=== PATIENT | male | born 1955 | race Caucasian/White ===

== ENCOUNTER 2021-06-14 07:09 | Emergency (ER) | payer OTHER, SELFPAY ==
--- NOTE | ~2021-06-14 | CT_ITS ---
EXAMINATION: CT ABDOMEN AND PELVIS WITHOUT CONTRAST CLINICAL INFORMATION: Flank pain. History of kidney stones. COMPARISON: Renal ultrasound from 05/14/2019 TECHNIQUE: Multidetector volumetric imaging was performed from the superior aspect of the liver through the pubic symphysis. Sagittal and coronal reformatted images were obtained on the technologist's workstation. This CT examination was performed using dose optimization techniques as appropriate, variously including the following: *Automated exposure control *Adjustment of mA and/or kV according to patient size (this includes techniques or standardized protocols for targeted exams where dose is matched to indication/reason for exam; i.e. extremities or head) *Use of iterative reconstruction technique DLP: 495 mGy-cm FINDINGS: LUNG BASES: There is centrilobular emphysema within the visualized lung bases. No pulmonary consolidation or pleural effusion at either lung base. LIVER: The liver has normal size, shape, and attenuation. No evidence of liver mass. Several small calcified granulomas are present within the liver. GALLBLADDER AND BILIARY TREE: Gallbladder is underdistended. No calcified gallstones. No evidence of gallbladder wall edema or pericholecystic fluid. PANCREAS: Normal. No edema, pancreatic ductal dilatation or mass. SPLEEN: Normal. ADRENAL GLANDS: Normal. KIDNEYS AND URETERS: There is atrophy/scarring of posterior cortex of the mid to upper pole of the left kidney. Otherwise, cortical thickness is well-preserved at each kidney. 0.4 cm calyceal stone in the upper pole of the right kidney is located 6.9 cm deep from the skin surface at the posterior axillary line. The stone is too small for acquisition of a reliable density measurement. No left-sided renal calculi. Left renal vascular calcifications are noted. No evidence of hydroureter. Within the left retroperitoneum, L4 level, a 0.2 x 0.2 x 0.4 cm calcification is difficult to localize (image 39 of 85, series 3). It might be within the nondilated ureter rather than within a vein (i.e., it might represent a nonobstructing ureteral stone rather than a phlebolith). Query if there is any left-sided flank pain. BLADDER: The urinary bladder is underdistended. No bladder calculi. BOWEL AND PERITONEUM: No dilated bowel loops. Stomach and small bowel are grossly unremarkable. The appendix is normal. Multiple diverticula of the colon, including sigmoid colon, has a mildly thickened wall. This is suggestive of chronic diverticular disease. No pericolonic fat stranding. No overt findings of acute diverticulitis. No ascites or pneumoperitoneum. ABDOMINAL WALL: Unremarkable. VASCULATURE: Atherosclerosis of the abdominal aorta without aneurysm. LYMPH NODES: No pathologic sized lymph nodes in the abdomen or pelvis. No inguinal lymphadenopathy. PELVIC VISCERA: Prostate gland is grossly unremarkable. No pelvic free fluid. Several phleboliths are seen within the lower pelvis. SKELETAL: Streak artifact is produced by components of the left hip arthroplasty. Mild spondylosis of the lumbar spine. No suspicious osseous lesions. CT/CT abdomen pelvis wo con IMPRESSION: * There is a nonobstructing 0.4 cm stone of the upper pole of the right kidney. * A 0.2 x 0.2 x 0.4 cm calcification in the left retroperitoneum is difficult to localize. It might be located within the nondilated ureter. The suspicion for a nonobstructing left ureteral stone would be elevated if there is any recent onset of left flank pain. * Colonic diverticulosis without evidence of diverticulitis. * Mild to moderate centrilobular emphysema is observed within the visualized lung bases.
[2021-06-14 07:18] VITALS: BP 135/77; PULSE 82; RESP 15; TEMP 36.6; O2SAT 99; BMI 22.4
--- NOTE | 2021-06-14 07:52 | ED.ABDPAIN ---
HPI - Abdominal Pain General Chief Complaint: Abdominal Pain Stated Complaint: flank pain Time Seen by Provider: 06/14/21 07:45 Source: patient Mode of arrival: ambulatory Limitations: no limitations History of Present Illness HPI narrative: 65-year-old male presents emergency department with 10 days of back pain. He has his left lower back states he has history kidney stones he denies dysuria or frequency he denies fevers falls chest pain cough or shortness of breath. Patient denies any nausea vomiting or diarrhea. He states his sister is the best cranial sacral specialist in the area and she saw him and told him that it was kidney issues leading to back pain. He states he has had 5 kidney stones in past he has not taken anything for pain for 10 days he states pain was very severe up until 3 days ago and his pain has just been manageable only hurts when he is moving. MD elicited complaint: flank pain Related Data Previous Rx's Medication Instructions Recorded cyclobenzaprine 5 mg tablet 5 mg PO BEDTIME PRN #20 tab 06/14/21 lidocaine 5 % topical patch 1 patch TOPICAL DAILY #30 ea 06/14/21 prednisone 20 mg tablet 60 mg PO DAILY 5 Days #15 tab 06/14/21 Allergies Allergy/AdvReac Type Severity Reaction Status Date / Time codeine [CODEINE] Allergy Intermediate HIVES Verified 06/14/21 07:33 Review of Systems Review of Systems Review of systems: General: Patient denies any fever chills recent illness or falls Musculoskeletal: Left lower back pain denies any other or body aches or other injuries HEENT: denies headache, runny nose, ear pain Respiratory: denies shortness of breath, cough Cardiovascular: no chest pain or palpitations : denies dysuria, frequency Abdomen: no nausea vomiting denies abdominal pain Extremities: no swelling, no pain Skin: no diaphoresis Yes all other systems are reviewed and are negative Physical Exam Vital Signs: Vital Signs: Last Vital Signs Temp 98.2 F 06/14/21 09:09 Pulse 62 06/14/21 09:09 Resp 16 06/14/21 09:09 BP 152/88 H 06/14/21 09:09 Pulse Ox 97 06/14/21 09:09 Body Mass Index 22.4 General: Well-appearing well-nourished in no signs of distress HEENT: Normocephalic atraumatic Neck: No signs of JVD, no masses no tenderness or lymphadenopathy Cardiovascular: Regular rate and rhythm Respiratory: Clear to auscultation bilaterally Abdomen: Soft nontender no masses Extremities: Normal pedal pulses no signs of edema Skin: Dry warm no rashes Back: No tenderness full ROM no CVA tenderness MDM - Abdominal Pain MDM Narrative Medical decision making narrative: I will get a CT scan check urine CBC BMP give patient fluids and Toradol. Labs okay this sounds more muscular still stills he only has pain with movement he is still pending his urinalysis. He might have passed a stone over the week but his pain that he is complaining of now is likely due to musculoskeletal issues. He has been taking Percocet at home which had left over. I educated patient trying some Flexeril starting on prednisone for few days. UA is negative I will send home. Differential Diagnosis Differential diagnosis: Likely calculus of kidney Differential diagnosis narrative:: Likely musculoskeletal back pain but I will get a CT scan to rule calculus of kidney will get CBC BMP LFTs lipase and urinalysis as well. Lab Data Result diagrams: 06/14/21 08:44 06/14/21 08:44 Labs: Lab Results 06/14/21 06/14/21 06/14/21 Range/Units 08:44 08:44 09:21 WBC 5.9 (4.8-10.8) X10*3/uL RBC 5.06 (4.60-5.80) X10*6/uL Hgb 15.8 (14.0-18.0) g/dl Hct 47.2 (42-52) % MCV 93.3 (80-98) fL MCH 31.2 (27.0-33.0) pg MCHC 33.5 (31.0-36.0) g/dl RDW 12.9 (11.0-16.0) % Plt Count 200 (160-400) X10*3/uL MPV 9.4 (9.4-12.4) fL Immature Gran % (Auto) 0.2 (0.0-0.4) % Neut % (Auto) 62.1 (45-73) % Lymph % (Auto) 23.7 (20-40) % [place] % (Auto) 11.1 H (2-11) % Eos % (Auto) 2.4 (0-4) % Baso % (Auto) 0.5 (0-2) % Lymph # (Auto) 1.4 (1.2-4.9) X10*3/uL [place] # (Auto) 0.7 (0.1-1.2) X10*3/uL Eos # (Auto) 0.1 (0.0-0.4) X10*3/uL Baso # (Auto) 0.0 (0.0-0.2) X10*3/uL Abs Immat Gran (auto) 0.01 (0.00-0.03) X10*3/uL Absolute Neuts (auto) 3.6 (2.0-8.3) X10*3/uL Absolute Nucleated RBC 0.000 (0.0-0.012) X10*3/uL Nucleated RBC % (auto) 0.0 (0.0-0.2) /100WBC Sodium 142 (135-145) mmol/L Potassium 3.9 (3.3-5.1) mmol/L Chloride 106 (96-108) mmol/L Carbon Dioxide 31 H (22-29) mmol/L Anion Gap 9 L (12-20) BUN 18 H (9-16) mg/dL Creatinine 0.92 (0.5-1.4) mg/dL Estim Creat Clear Calc 84.9 Estimated GFR > 60 Random Glucose 111 (60-115) mg/dL Calcium 9.2 (8.4-10.2) mg/dL Total Bilirubin 0.6 (0.0-1.0) mg/dL Direct Bilirubin 0.3 (0.0-0.5) mg/dL AST 14 (5-37) U/L ALT 16 (0-40) U/L Alkaline Phosphatase 79 (39-117) U/L Total Protein 6.2 L (6.5-8.0) g/dL Albumin 4.0 (3.5-5.0) g/dL Lipase 6 L (8-78) U/L Urine Color YELLOW Urine Appearance CLEAR Urine pH 6.0 (5.0-8.0) Ur Specific Rentz 1.020 (1.005-1.025) Urine Protein NEG (NEG-TRACE) MG/DL Urine Glucose (UA) NEG (NEG) MG/DL Urine Ketones NEG (NEG) MG/DL Urine Blood NEG (NEG) Urine Nitrite NEG (NEG) Ur Leukocyte Esterase TRACE H (NEG) Urine RBC 0 (0) /HPF Urine WBC 1-4 (0-4) /HPF Ur Squamous Epith Cells TRACE /LPF Ur Renal Epithelial Cell TRACE /LPF Urine Bacteria NONE /LPF Discharge Plan Discharge Clinical Impression: Acute flank pain, Back pain Patient Disposition: Home, Self-Care Instructions: Back Pain (ED) Additional Instructions: Your labs and CT are all okay. Please call to follow up with your doctor. Prescriptions: New prednisone 20 mg tablet 60 mg PO DAILY 5 Days Qty: 15 RF: 0 lidocaine 5 % adhesive patch,medicated 1 patch topical DAILY Qty: 30 RF: 0 cyclobenzaprine 5 mg tablet 5 mg PO BEDTIME PRN (Reason: muscle spasm) Qty: 20 RF: 0 PMFSH Past Medical History Medical History (Updated 06/14/21 @ 09:26 by Darrell Pastrana DO) Kidney stone Social History Social History Patient Tobacco Use Status: Former Tobacco user Use of substances other than those prescribed or required for medical reasons: Yes Substance Use Type: Marijuana Substance Use Frequency: Occasionally Last Used Substance: Unknown Any prior treatment program specific to substance use: No Advance Directives: No
[2021-06-14 08:48] LABS: MANUAL DIFF FLAG NO
[2021-06-14] MEDS: Ketorolac Tromethamine 15 MG/ML VIAL IVPUSH (08:53)
[2021-06-14 08:54] LABS: Basophils Percent Auto 0.5 % (0-2); Eosinophils Absolute Auto 0.1 X10*3/uL (0.0-0.4); Eosinophils Percent Auto 2.4 % (0-4); Hematocrit 47.2 % (42-52); Hemoglobin 15.8 g/dl (14.0-18.0); Imm Gran Abs Auto 0.01 X10*3/uL (0.00-0.03); Imm Gran Pct Auto 0.2 % (0.0-0.4); Lymphocytes Absolute Auto 1.4 X10*3/uL (1.2-4.9); Lymphocytes Percent Auto 23.7 % (20-40); Mean Corpuscular HGB Conc 33.5 g/dl (31.0-36.0); Mean Corpuscular Hemoglobin 31.2 pg (27.0-33.0); Mean Corpuscular Volume 93.3 fL (80-98); Mean Platelet Volume 9.4 fL (9.4-12.4); Monocytes Absolute Auto 0.7 X10*3/uL (0.1-1.2); Monocytes Percent Auto 11.1 % (2-11); Neutrophils Absolute Auto 3.6 X10*3/uL (2.0-8.3); Neutrophils Percent Auto 62.1 % (45-73); Platelet Count 200 X10*3/uL (160-400); Red Blood Count 5.06 X10*6/uL (4.60-5.80); Red Cell Distribution Width 12.9 % (11.0-16.0); White Blood Count 5.9 X10*3/uL (4.8-10.8)
[2021-06-14] MEDS: 0.9 % Sodium Chloride 500 ML 999 ML IV (08:54)
[2021-06-14 09:09] VITALS: BP 152/88; PULSE 62; RESP 16; TEMP 36.8; O2SAT 97
[2021-06-14 09:13] LABS: Alanine Aminotransferase 16 U/L (0-40); Alkaline Phosphatase 79 U/L (39-117); Anion Gap 9 (12-20); Aspartate Amino Transferase 14 U/L (5-37); Bilirubin Direct 0.3 mg/dL (0.0-0.5); Bilirubin Total 0.6 mg/dL (0.0-1.0); Blood Urea Nitrogen 18 mg/dL (9-16); Calcium 9.2 mg/dL (8.4-10.2); Carbon Dioxide 31 mmol/L (22-29); Chloride 106 mmol/L (96-108); Creatinine Clr Calc Pharmacy 84.9; Estimated Glomerular Filt Rate > 60; Glucose Random 111 mg/dL (60-115); Lipase 6 U/L (8-78); Potassium 3.9 mmol/L (3.3-5.1); Sodium 142 mmol/L (135-145); Total Protein 6.2 g/dL (6.5-8.0)
--- NOTE | 2021-06-14 09:19 | PC.NURSE ---
pt alert and oreinted x4, vss. pt reports LL back pain for 10 days now. he states he has history of kidney stone. denies fever/chills. no falls. no chest pain, no cough, no sob. denies n/v/d. pt states these symptoms are the same as previous. iv has been established, meds given, fluids hung as documented. no apparent distress noted. l
[2021-06-14 09:27] LABS: Appearance Urine CLEAR; Color Urine YELLOW; Glucose Urine UA NEG (NEG); Leukocyte Esterase Urine TRACE (NEG); Nitrite Urine NEG (NEG); UACC Culture Trigger YES; Urine Blood NEG (NEG); Urine Ketones NEG (NEG); Urine Protein NEG (NEG-TRACE)
[2021-06-14 09:45] LABS: RBC Urine 0 /HPF (0)
[2021-06-14 09:46] LABS: Renal Epithelial Cells Urine TRACE /LPF; Squamous Epithelial Cell Urine TRACE /LPF
[2021-06-14] MEDS: predniSONE 20 MG TABLET 60 MG PO (11:06)
[2021-06-14 11:10] VITALS: BP 159/76; PULSE 61; RESP 14; O2SAT 98
--- NOTE | 2021-06-14 11:14 | PC.NURSE ---
pt medically cleared for discharge, prn pain med effect. discharge summary given and explained.
== END 2021-06-14 11:19 | disposition home or self-care (01) ==
PROVIDERS: Emergency Provider Student in an Organized Health Care Education/Training Program; PCP Family Medicine
DX: R10.9 Unspecified abdominal pain (principal); M54.50 Low back pain, unspecified; Z79.899 Other long term (current) drug therapy
CPT/HCPCS: 36415; 74176; 80048; 80076; 81001; 83690; 85025; 87086; 96361; 96374; 99284; J1885

== ENCOUNTER 2023-01-30 09:26 | Emergency (ER) | payer OTHER, SELFPAY ==
--- NOTE | ~2023-01-30 | XR_ITS ---
EXAMINATION: XR HAND, RIGHT CLINICAL INFORMATION: Swelling and redness. Evaluate for osteomyelitis. COMPARISON: 3 views of the right hand TECHNIQUE: Bone alignment is normal. No fracture or dislocation. Normal joints spaces soft tissue swelling adjacent to the radial and volar distal phalanx of the second finger and Irregularly-shaped 2 mm in length density in the soft tissues questionable soft tissue foreign body. Small periarticular soft tissue calcification or ossification adjacent to the middle phalanx of the third finger along the DIP joint questionable for changes from old trauma. FINDINGS: Bone alignment is normal. No fracture or dislocation. Normal joints spaces soft tissue swelling adjacent to the radial and volar distal phalanx of the second finger and Irregularly-shaped 2 mm in length density in the soft tissues questionable soft tissue foreign body. Small periarticular soft tissue calcification or ossification adjacent to the middle phalanx of the third finger along the DIP joint questionable for changes from old trauma. XR/XR hand RT 2V IMPRESSION: No x-ray evidence of osteomyelitis. Soft tissue swelling of the distal second finger and question small soft tissue foreign body. Clinical correlation recommended.
[2023-01-30 10:09] VITALS: BP 164/82; PULSE 58; RESP 20; TEMP 36.3; O2SAT 96; BMI 20.9
--- NOTE | 2023-01-30 11:44 | ED_ITS ---
HPI - Wound/Laceration General Chief Complaint: Wound/Laceration Stated Complaint: r index finger infection Time Seen by Provider: 01/30/23 11:10 Source: patient Mode of arrival: ambulatory Limitations: no limitations History of Present Illness HPI narrative: 67-year-old male who is right-hand dominant who presents to the ER with complaints of redness and swelling to the right 2nd digit for the last 2 weeks. Patient reports he was fishing and the spike of a sullivan punctured his right index finger. He reported initially he had a puncture wound and some slight discomfort but over the weekend he developed increasing redness and swelling. Patient is unsure of his tetanus status. Patient denies any fevers or chills. Patient reports that this was from a fresh water fish. Related Data Previous Rx's Medication Instructions Recorded cyclobenzaprine 5 mg tablet 5 mg PO BEDTIME PRN muscle spasm 06/14/21 #20 tabs cyclobenzaprine 5 mg tablet 5 mg PO BEDTIME PRN muscle spasm 06/14/21 #20 tabs lidocaine 5 % topical patch 1 patch topical DAILY back pain 06/14/21 #30 ea lidocaine 5 % topical patch 1 patch topical DAILY back pain 06/14/21 #30 ea prednisone 20 mg tablet 60 mg PO DAILY Asthma 5 days #15 06/14/21 tabs prednisone 20 mg tablet 60 mg PO DAILY Asthma 5 days #15 06/14/21 tabs amoxicillin 875 mg-potassium 1 tab PO Q12H #14 tabs 01/30/23 clavulanate 125 mg tablet Allergies Allergy/AdvReac Type Severity Reaction Status Date / Time codeine [CODEINE] Allergy Intermediate HIVES Verified 06/14/21 07:33 Review of Systems Review of Systems: Yes all other systems are reviewed and are negative Constitutional: Constitutional: Reports no additional constitutional complaints, Denies body ache(s), Denies chills, Denies fever(s), Denies headac he(s) and Denies weakness Eyes: Eyes: Reports no additional eye complaints and Denies change in vision ENT: Reports system reviewed and no additional complaints, except as documented, Denies dizziness, Denies headache(s), Denies nasal congestion, Denies nasal discharge and Denies neck pain Cardiovascular: Cardiovascular: Reports no additional cardiovascular complaints, Denies chest pain, Denies leg edema and Denies dyspnea Respiratory: Respiratory: Reports no additional respiratory complaints, Denies cough and Denies dyspnea Gastrointestinal: Gastrointestinal: Reports no additional gastrointestinal complaints, Denies abdominal pain, Denies diarrhea, Denies nausea and Denies vomiting Genitourinary: Genitourinary: Denies urinary incontinence Musculoskeletal: Musculoskeletal: Reports no additional musculoskeletal complaints, Denies back pain, Denies arthralgias, Denies joint swelling, Denies neck pain, Denies numbness and Denies tingling Integumentary/Breasts: Skin/Breast: Reports system reviewed and no additional complaints, except as docu, Reports swelling, Reports erythema and Denies rash Neurologic: Reports system reviewed and no additional complaints, except as documented, Denies Abnormal speech present, Denies dizziness, Denies headache(s), Denies numbness, Denies tingling and Denies weakness PMFSH Past Medical History Attestation statement: The following information was validated with the patient. Source: old records reviewed and nursing notes reviewed Medical History Kidney stone Social History Social History Patient Tobacco Use Status: Former Tobacco user Substance Use Type: Marijuana Advance Directives: No Advance Directives Information Provided: Yes Physical Exam Vital Signs: Vital Signs: Last Vital Signs Temp 97.0 F 01/30/23 12:54 Pulse 57 01/30/23 12:54 Resp 14 01/30/23 12:54 BP 163/77 H 01/30/23 12:54 Pulse Ox 97 01/30/23 12:54 O2 Del Method Room Air 01/30/23 12:54 BMI result Body Mass Index 20.9 Const: General: cooperative, healthy appearing, comfortable and no acute distress Orientation/consciousness: patient oriented x3 Limitations: no limitations HEENT: Head: Yes normal to inspection Ears: hearing grossly normal bilaterally General nose exam: Normal external nose present Face and sinus: Yes normal facial exam Mouth: Normal oral and palatal mucosa present Throat: Yes posterior oropharynx normal Eyes: General: appearance normal, both eyes and all related structures Pupils: Equal, round and reactive pupils present Neck: Neck: Yes normal visual inspection Chest: Chest palpation & inspection: normal inspection of the chest Resp: Effort & Inspection: normal respiratory effort Auscultation: clear to auscultation bilaterally Cardio: Rate: regular rate Rhythm: regular rhythm Peripheral pulses: Peripheral pulses 2+ throughout GI: Inspection: Yes normal to inspection Palpation (GI): Soft to palpation and nontender Auscultation: normal bowel sounds Back/Spine/Pelvis: Thoracic/Lumbar Spine: thoracic and lumbar spine normal to inspection Skin: General skin exam: no rashes or lesions noted Neuro: General: patient oriented x3, no focal motor deficits and normal sensation to monofilament Cranial nerves: Yes Equal, round and reactive pupils present Cognition (Neuro): normal cognition Speech: No Abnormal speech present Gait exam (Neuro): Normal gait present Motor exam (neuro): 5/5 motor strength present throughout Extrem: Other: To the distal aspect of the volar right 2nd digit there is a puncture site noted. There is local erythema and swelling. FroM General: Yes normal to inspection Course Course Course Narrative: x-ray shows no evidence of osteomyelitis. There does appear to be a small soft tissue foreign body. This cannot be removed manually at the bedside as it appears quite deep. I did discuss this with the patient and recommend he follow-up with hand surgery outpatient. I will place him on oral antibiotics and recommend warm salt compresses. reviewed worrisome signs and symptoms of when to return to the emergency room. Comfortable plan for discharge home Medications Administered Discontinued Medications Generic Name Dose Route Start Last Admin Trade Name Hadleyq PRN Reason Stop Dose Admin Diphtheria/Tetanus/Acell Pertussis 0.5 ml 01/30/23 11:38 01/30/23 11:58 Diphth,Pertus(Acell),Tet Adult 0.5 Ml Syringe IM 01/30/23 11:39 0.5 ml .ONCE ONE Administration Medical Decision Making Medical Decision Making [facility] Narrative: This is a 67-year-old male [id number] here with swelling and redness to the right 2nd digit with a puncture wound which occurred 2 weeks ago from the fin of the fish that he caught from fresh water. Patient appears to have mild cellulitis on exam no evidence of tenosynovitis, cellulitis is mild in appearance I will check an x-ray to eval for osteo or foreign body, patient will receive a tetanus Differential Diagnosis Differential Diagnoses: The differential diagnosis associated with the presentation includes low concern for tenosynovitis consider cellulitis will concern for foreign body or fracture Independent Interpretation I performed an independent interpretation of an: Plain X-Ray Interpretation: I independently reviewed the x-ray and agree with the radiology report Radiology Impression Discussion of test interpretation with radiology: I have reviewed the radiologist's reading. Radiologist Impression: [address] [address] XRay Report Signed Patient: Kobi Davis MR#: [id number] : 1955 Acct:[id number] Age/Sex: 67 / M ADM Date: 01/30/23 Loc: HO.ED Attending Dr: Ordering Physician: Marie Wright NP Date of Service: 01/30/23 Procedure(s): XR hand RT 2V Accession Number(s): [id number] cc: Marie Wright NP~ EXAMINATION: XR HAND, RIGHT CLINICAL INFORMATION: Swelling and redness. Evaluate for osteomyelitis.? COMPARISON: 3 views of the right hand TECHNIQUE: Bone alignment is normal. No fracture or dislocation. Normal joints spaces soft tissue swelling adjacent to the radial and volar distal phalanx of the second finger and Irregularly-shaped 2 mm in length density in the soft tissues questionable soft tissue foreign body. Small periarticular soft tissue calcification or ossification adjacent to the middle phalanx of the third finger along the DIP joint questionable for changes from old trauma. FINDINGS: Bone alignment is normal. No fracture or dislocation. Normal joints spaces soft tissue swelling adjacent to the radial and volar distal phalanx of the second finger and Irregularly-shaped 2 mm in length density in the soft tissues questionable soft tissue foreign body. Small periarticular soft tissue calcification or ossification adjacent to the middle phalanx of the third finger along the DIP joint questionable for changes from old trauma. XR/XR hand RT 2V IMPRESSION: No x-ray evidence of osteomyelitis. Soft tissue swelling of the distal second finger and question small soft tissue foreign body. Clinical correlation recommended. Discharge Plan Discharge Clinical Impression: Cellulitis Patient Disposition: Home, Self-Care Instructions: Cellulitis (DC), Warm Compress or Soak (ED) Additional Instructions: warm soaks 3-4 times daily Take Motrin or Tylenol for pain as needed if able Taking antibiotics as prescribed. Return for any fever, increasing redness or swelling. Your x-ray shows a foreign body in the soft tissue. This may be from the fish. Therefore we are referring you to a hand surgeon to follow up Prescriptions: New amoxicillin-pot clavulanate 875-125 mg tablet 1 tab PO Q12H Qty: 14 0RF No Action prednisone 20 mg tablet 60 mg PO DAILY 5 Days Qty: 15 0RF lidocaine 5 % adhesive patch,medicated 1 patch topical DAILY Qty: 30 0RF Rx Instructions: leave on most painful area for up to 12 hrs cyclobenzaprine 5 mg tablet 5 mg PO BEDTIME PRN (Reason: muscle spasm) Qty: 20 0RF prednisone 20 mg tablet 60 mg PO DAILY 5 Days Qty: 15 0RF lidocaine 5 % adhesive patch,medicated 1 patch topical DAILY Qty: 30 0RF Rx Instructions: leave on most painful area for up to 12 hrs cyclobenzaprine 5 mg tablet 5 mg PO BEDTIME PRN (Reason: muscle spasm) Qty: 20 0RF Referrals: Liz Hong MD [Primary Care Provider] - 1 week Viry Cummings MD [Physician] - 1 week Interventions: ED Discharge Assessment Last Done: 01/30/23 13:30 Discharge Date/Time: 01/30/23 13:30
[2023-01-30] MEDS: Diphth,Pertus(ACell),Tet Adult 0.5 ML SYRINGE IM (11:58)
--- NOTE | 2023-01-30 12:36 | PC.NURSE ---
pt aox4, vaccine given per oct. awaiting x ray results
[2023-01-30 12:54] VITALS: BP 163/77; PULSE 57; RESP 14; TEMP 36.1; O2SAT 97
== END 2023-01-30 13:30 | disposition home or self-care (01) ==
PROVIDERS: Emergency Provider Emergency Medicine; PCP Family Medicine
DX: L03.011 Cellulitis of right finger (principal); S61.240A Puncture wound with foreign body of right index finger without damage to nail, initial encounter; W45.8XXA Other foreign body or object entering through skin, initial encounter; Y93.19 Activity, other involving water and watercraft; Y92.89 Other specified places as the place of occurrence of the external cause; Y99.9 Unspecified external cause status
CPT/HCPCS: 73120; 90471; 90715; 99284

== ENCOUNTER → 2023-02-15 08:26 | Outpatient (BNVA) | payer OTHER, SELFPAY | PROVIDERS: PCP Family Medicine; Visit Provider Physician Assistant | DX: L03.113 Cellulitis of right upper limb (principal) | CPT/HCPCS: 99202 ==

== ENCOUNTER 2023-04-24 05:58 | Emergency (ER) | payer OTHER, SELFPAY ==
[2023-04-24 06:17] VITALS: BP 150/73; PULSE 51; RESP 19; TEMP 36.1; O2SAT 97; BMI 20.7
--- NOTE | 2023-04-24 08:01 | ED_ITS ---
HPI - General Adult General Chief complaint: General Medical Stated complaint: right foot infection Time Seen by Provider: 04/24/23 07:59 Source: patient Mode of arrival: ambulatory Limitations: no limitations History of Present Illness HPI narrative: Patient presented complaining of right leg infection ongoing for 2 months denies any fever chills any systemic symptoms, he does not have diabetes he is not a smoker Onset (ago): month(s) (2) Location: lower extremity (Right leg) Radiation: non-radiation Severity: mild Quality: burning Pain Consistency: constant Exacerbating factors: none Associated symptoms: denies other symptoms Related Data Home Medications Medication Instructions Recorded Confirmed aspirin 81 mg tablet,delayed 81 mg PO DAILY 02/15/23 release (Adult Low Dose Aspirin) lisinopril 5 mg tablet 5 mg PO DAILY 02/15/23 Previous Rx's Medication Instructions Recorded cyclobenzaprine 5 mg tablet 5 mg PO BEDTIME PRN muscle spasm 06/14/21 #20 tabs cyclobenzaprine 5 mg tablet 5 mg PO BEDTIME PRN muscle spasm 06/14/21 #20 tabs lidocaine 5 % topical patch 1 patch topical DAILY back pain 06/14/21 #30 ea lidocaine 5 % topical patch 1 patch topical DAILY back pain 06/14/21 #30 ea prednisone 20 mg tablet 60 mg PO DAILY Asthma 5 days #15 06/14/21 tabs prednisone 20 mg tablet 60 mg PO DAILY Asthma 5 days #15 06/14/21 tabs amoxicillin 875 mg-potassium 1 tab PO Q12H #14 tabs 01/30/23 clavulanate 125 mg tablet cephalexin 500 mg capsule 500 mg PO QID 10 days #40 caps 04/24/23 Allergies Allergy/AdvReac Type Severity Reaction Status Date / Time codeine [CODEINE] Allergy Intermediate HIVES Verified 02/15/23 08:47 Review of Systems Constitutional: Constitutional: Reports no additional constitutional complaints ENT: Reports system reviewed and no additional complaints, except as documented Cardiovascular: Cardiovascular: Reports no additional cardiovascular complaints Respiratory: Respiratory: Reports no additional respiratory complaints PMFSH Past Medical History Medical History High cholesterol Hypertension Kidney stone Surgical History History of hip replacement Social History Social History Patient Tobacco Use Status: Former Tobacco user Substance Use Type: Marijuana Advance Directives: No Advance Directives Information Provided: No Current occupational status: disabled Current occupation: right hand dominant Physical Exam ED Vital Signs: Vital Signs - 24 hr 04/24/23 06:17 Temperature 97.0 F Pulse Rate 51 Respiratory Rate 19 Blood Pressure 150/73 H Pulse Oximetry 97 Oxygen Delivery Method Room Air BMI result Body Mass Index 20.7 He looks well is not toxic-appearing Const General: cooperative Nutritional Appearance: average body habitus Orientation/consciousness: patient oriented x3 Limitations: no limitations HENMT Head: Yes normal to inspection General nose exam: Normal external nose present Face and sinus: Yes normal facial exam Mouth: Normal oral and palatal mucosa present Teeth and gingiva: dentition normal Neck Neck: Yes normal visual inspection Chest Chest palpation & inspection: normal inspection of the chest Resp Effort & Inspection: normal respiratory effort Auscultation: clear to auscultation bilaterally Cardio Jugular venous distension: no JVD Rate: regular rate Rhythm: regular rhythm GI Inspection: Yes normal to inspection Palpation (GI): Soft to palpation, not firm and nontender Percussion: Yes normal to percussion Skin General skin exam: elasticity normal Neuro General: patient oriented x3 Extrem Other: Examination the right lower extremity shows in the medial aspect of the leg area of redness. I was able to palpate the foot pulses with doppler Course Reevaluation(s) Reevaluation #1: Patient he is refusing blood work and ultrasound to rule out DVT he understand risk of this he states that his is ill at home with hospice and he need to be with her SAM possible, because she may soon. This point will give him a prescription for antibiotic he will follow-up with PCP Time: 08:22 Medical Decision Making Medical Decision Making MDM Narrative: Patient presented with the cellulitis of the right lower extremity, he refuses blood work he refused ultrasound, he states that his is in hospice and needs to be with her a soon as possible. The clinical picture is consistent with cellulitis I will provide the patient with p.o. antibiotic he will follow- up with his PCP Differential Diagnosis Differential Diagnoses: The differential diagnosis associated with the presentation includes Cellulitis/ulcer Admission/Observation Consideration of admission/observation: Escalation of care including admission/observation considered Prescription Management I considered prescription management with: Antibiotic Discharge Plan Discharge Clinical Impression: Cellulitis of right leg Patient Disposition: Home, Self-Care Instructions: Cellulitis (DC) Additional Instructions: You are refusing blood work and an ultrasound of the legs, you should follow-up with your doctor as soon as possible return if you have a fever increased swelling any concern Prescriptions: New cephalexin 500 mg capsule 500 mg PO QID 10 Days Qty: 40 0RF No Action prednisone 20 mg tablet 60 mg PO DAILY 5 Days Qty: 15 0RF lidocaine 5 % adhesive patch,medicated 1 patch topical DAILY Qty: 30 0RF Rx Instructions: leave on most painful area for up to 12 hrs cyclobenzaprine 5 mg tablet 5 mg PO BEDTIME PRN (Reason: muscle spasm) Qty: 20 0RF prednisone 20 mg tablet 60 mg PO DAILY 5 Days Qty: 15 0RF lidocaine 5 % adhesive patch,medicated 1 patch topical DAILY Qty: 30 0RF Rx Instructions: leave on most painful area for up to 12 hrs cyclobenzaprine 5 mg tablet 5 mg PO BEDTIME PRN (Reason: muscle spasm) Qty: 20 0RF amoxicillin-pot clavulanate 875-125 mg tablet 1 tab PO Q12H Qty: 14 0RF lisinopril 5 mg tablet 5 mg PO DAILY aspirin [Adult Low Dose Aspirin] 81 mg tablet,delayed release (DR/EC) 81 mg PO DAILY Referrals: Physician,Unknown J [Primary Care Provider] - 2 days
--- NOTE | 2023-04-24 08:11 | PC.NURSE ---
pt refusing work up or assessment. md to send prescription and referrals. pt being dc.
== END 2023-04-24 08:13 | disposition home or self-care (01) ==
PROVIDERS: Emergency Provider Emergency Medicine
DX: L03.115 Cellulitis of right lower limb (principal); Z79.899 Other long term (current) drug therapy
CPT/HCPCS: 99283

== ENCOUNTER 2023-06-22 12:16 | Emergency (ER) | payer OTHER, SELFPAY ==
[2023-06-22 12:17] VITALS: BP 137/77; PULSE 88; RESP 18; TEMP 36.4; O2SAT 97; BMI 20.7
--- NOTE | 2023-06-22 12:23 | ED.GENADULT ---
HPI - General Adult General Chief complaint: Extremity Problem Stated complaint: foot swollen Time Seen by Provider: 06/22/23 12:47 Source: patient and old records reviewed Mode of arrival: ambulatory Limitations: no limitations History of Present Illness HPI narrative: 67 yo male with history of HTN, HLD, kidney stones who presents to the ER for evaluation of right foot redness, pain and swelling for the last 3 days. He states he has had right lower leg redness and recurrent infection since January. Last was on antibiotics end of March with improvement in redness but not complete resolution. He states 3 days ago he scratched the top of his right foot and thinks he broke the skin. Yesterday the foot started to swell and get red. This morning there were a few fluid filled blisters and it was worse. No further skin changes to the right lower leg. No fever or chills. MD complaint: right foot swelling and redness Onset (ago): day(s) (3) Location: right and lower extremity Radiation: proximal Severity: moderate Quality: aching Pain Consistency: intermittent Relieving factors: rest Exacerbating factors: movement Associated symptoms: denies other symptoms Treatments prior to arrival: none Related Data Home Medications Medication Instructions Recorded Confirmed aspirin 81 mg tablet,delayed 81 mg PO DAILY 02/15/23 release (Adult Low Dose Aspirin) lisinopril 5 mg tablet 5 mg PO DAILY 02/15/23 Previous Rx's Medication Instructions Recorded cyclobenzaprine 5 mg tablet 5 mg PO BEDTIME PRN muscle spasm 06/14/21 #20 tabs cyclobenzaprine 5 mg tablet 5 mg PO BEDTIME PRN muscle spasm 06/14/21 #20 tabs lidocaine 5 % topical patch 1 patch topical DAILY back pain 06/14/21 #30 ea lidocaine 5 % topical patch 1 patch topical DAILY back pain 06/14/21 #30 ea prednisone 20 mg tablet 60 mg (3 x 20 mg) PO DAILY Asthma 06/14/21 5 days #15 tabs prednisone 20 mg tablet 60 mg (3 x 20 mg) PO DAILY Asthma 06/14/21 5 days #15 tabs amoxicillin 875 mg-potassium 1 tab PO Q12H #14 tabs 01/30/23 clavulanate 125 mg tablet cephalexin 500 mg capsule 500 mg PO QID 10 days #40 caps 04/24/23 cephalexin 500 mg capsule 500 mg PO Q6H 7 days #28 caps 06/22/23 doxycycline hyclate 100 mg tablet 100 mg PO BID #14 tabs 06/22/23 Allergies Allergy/AdvReac Type Severity Reaction Status Date / Time codeine [CODEINE] Allergy Intermediate HIVES Verified 02/15/23 08:47 Review of Systems Review of Systems: Yes all other systems are reviewed and are negative [facility] Past Medical History Medical History High cholesterol Hypertension Kidney stone Surgical History History of hip replacement Social History Social History Patient Tobacco Use Status: Former Tobacco user Substance Use Type: Marijuana Advance Directives: No Advance Directives Information Provided: Yes Current occupational status: disabled Current occupation: right hand dominant Physical Exam ED Vital Signs: Vital Signs - 24 hr 06/22/23 12:17 Temperature 97.6 F Pulse Rate 88 Respiratory Rate 18 Blood Pressure 137/77 Pulse Oximetry 97 Oxygen Delivery Method Room Air BMI result Body Mass Index 20.7 Appearance: Alert. Oriented X3. No acute distress. HEENT: normal inspection CVS: Normal heart rate and rhythm. Pulses normal. Respiratory: No respiratory distress. Skin: Skin warm and dry. Normal skin color. Normal skin turgor. No rashes. Extremities: right lower leg without swelling, there is hyperpigmented skin of the distal leg anteriorly. no open wounds, erythema or warmth. top of the right foot with mild diffuse swelling, erythema and tenderness, few superficial excoriations laterally with 2 small <1cm fluid filled bullae near the base of the toes. foot is warm and well perfused with 2+ DP pulse Neuro: Oriented X 3. No motor deficit. No sensory deficit. Course Course Course Narrative: RME- 67 year old male presents for evaluation of right foot and leg swelling. He was here on 04/24/23 for right leg cellulitis and was teated with cellulitis. He reports that his symptoms improved but never completely resolved. Medical Decision Making Medical Decision Making MDM Narrative: 67 yo male, not diabetic presenting with acute onset right foot pain, redness and swelling x3 days after scratching the area. Has chronic hyperpigmentation of the right lower leg c/w venous stasis and not active infection. foot appears cellulitic. he has stable VS and physical exam is otherwise unremarkable. no signs of systemic infection. will start on abx and have him f/u with his PCP and vascular given concern for PVD. stable for d/c home Differential Diagnosis Differential Diagnoses: The differential diagnosis associated with the presentation includes PVD, PAD, cellulitis, abscess, erysipilas, MRSA infection, less likely DVT Admission/Observation Consideration of admission/observation: Escalation of care including admission/observation considered recurrent visit for infection RLE in elderly male, considered admit on arrival External Record Review External record reviewed: Office record, Outpatient record and Prior outpatient labs Tests considered The following testing was considered but not selected: considered x-ray, no trauma, low clinical suspicion for osteomyelitis Prescription Management I considered prescription management with: Pain Medication and Antibiotic Chronic Conditions Patient?s care impacted by: Hypertension Critical Care Time Critical Care Time Critical Care Time: No Discharge Plan Discharge Clinical Impression: Cellulitis Qualifiers: Site of cellulitis: extremity Site of cellulitis of extremity: lower extremity Laterality: right Qualified Code(s): L03.115 - Cellulitis of right lower limb Patient Disposition: Home, Self-Care Instructions: Cellulitis (DC) Additional Instructions: Take the prescribed antibiotics as directed, complete the entire course and do not miss any doses Use warm compresses to the area 2-3 times per day Elevate the foot when possible Follow up with your doctor as well as Vascular Specialist for further evaluation and treatment If you develop new or worsening symptoms call 911 or come back to the ER for further evaluation. Prescriptions: New doxycycline hyclate 100 mg tablet 100 mg PO BID Qty: 14 0RF cephalexin 500 mg capsule 500 mg PO Q6H 7 Days Qty: 28 0RF No Action prednisone 20 mg tablet 60 mg PO DAILY 5 Days Qty: 15 0RF lidocaine 5 % adhesive patch,medicated 1 patch topical DAILY Qty: 30 0RF Rx Instructions: leave on most painful area for up to 12 hrs cyclobenzaprine 5 mg tablet 5 mg PO BEDTIME PRN (Reason: muscle spasm) Qty: 20 0RF prednisone 20 mg tablet 60 mg PO DAILY 5 Days Qty: 15 0RF lidocaine 5 % adhesive patch,medicated 1 patch topical DAILY Qty: 30 0RF Rx Instructions: leave on most painful area for up to 12 hrs cyclobenzaprine 5 mg tablet 5 mg PO BEDTIME PRN (Reason: muscle spasm) Qty: 20 0RF cephalexin 500 mg capsule 500 mg PO QID 10 Days Qty: 40 0RF amoxicillin-pot clavulanate 875-125 mg tablet 1 tab PO Q12H Qty: 14 0RF lisinopril 5 mg tablet 5 mg PO DAILY aspirin [Adult Low Dose Aspirin] 81 mg tablet,delayed release (DR/EC) 81 mg PO DAILY Interventions: ED Discharge Assessment Last Done: 06/22/23 13:16 Discharge Date/Time: 06/22/23 13:16
== END 2023-06-22 13:16 | disposition home or self-care (01) ==
PROVIDERS: Emergency Provider Emergency Medicine; PCP Family Medicine
DX: L03.115 Cellulitis of right lower limb (principal); R60.0 Localized edema; Z79.899 Other long term (current) drug therapy
CPT/HCPCS: 99282; 99283